=== PATIENT | female | born 1995 | race Caucasian/White ===

== ENCOUNTER 2017-11-28 16:49 | Outpatient (CLI) | END 2017-11-28 23:42 | disposition home or self-care (01) ==

== ENCOUNTER 2017-12-19 22:18 | Outpatient (CLI) | END 2017-12-20 01:00 | disposition home or self-care (01) ==

== ENCOUNTER 2017-12-28 06:30 | Inpatient (IN) | END 2017-12-30 14:00 | disposition home or self-care (01) | DRG 807 ==